=== PATIENT | male | born 1935 | race Caucasian/White ===

== ENCOUNTER → 2016-10-05 | Outpatient (CLI) | payer MEDICARE, BC | END | disposition home or self-care (01) | LOC: GMAL 10:44 | PROVIDERS: ATTEND Family Medicine | DX: Z12.5 Encounter for screening for malignant neoplasm of prostate (principal); E55.9 Vitamin D deficiency, unspecified | CPT/HCPCS: 82306; G0103 ==

== ENCOUNTER → 2017-02-22 | Outpatient (CLI) | payer MEDICARE, BC | END | disposition home or self-care (01) | LOC: LAB.O 10:09 | PROVIDERS: ATTEND Family Medicine | DX: E21.3 Hyperparathyroidism, unspecified (principal) ==

== ENCOUNTER → 2017-05-10 | Outpatient (CLI) | payer MEDICARE, BC | END | disposition home or self-care (01) | LOC: GMAL 12:26 | PROVIDERS: ATTEND Family Medicine | DX: E83.42 Hypomagnesemia (principal); E83.31 Familial hypophosphatemia; I10 Essential (primary) hypertension ==

== ENCOUNTER → 2017-07-12 | Outpatient (CLI) | payer MEDICARE, BC ==
--- NOTE | 2017-07-12 15:47 | US ---
EXAM DESCRIPTION: Breast,Left: Ultrasound CLINICAL HISTORY: 81 yearsMaleBREAST TENDERNESS . Retroareolar left breast COMPARISON: Digital 3-D tomosynthesis bilateral breasts on this visit. TECHNIQUE: Transcutaneous scanning of the bilateral retroareolar breasts. utilizing two-dimensional and Doppler modes. Scanning performed by the chief building inspector and Dr. Jha. FINDINGS: Scanned the retroareolar bilateral breasts. No discrete solid mass or cyst. No skin thickening or parenchymal edema. No large calcifications. No evidence of gynecomastia retroareolar left breast. IMPRESSION: 1. Bi-Rads Category 2: Benign. 2. Please refer to bilateral 3-D tomosynthesis mammography of the breasts on this visit. The FINDINGS and the follow-up plan were reviewed in person with the patient after the examination. Written communication explaining the IMPRESSION and follow-up will be mailed to the patient and referring care provider. Electronically signed by: Adan Jha MD 07/12/2017 3:46 PM [facility]
--- NOTE | 2017-07-12 15:49 | MAM ---
EXAM DESCRIPTION: 3D Diagnostic, Bilateral: Digital Mammography CLINICAL HISTORY: 81 yearsMaleLEFT BREAST TENDERNESS. Tender behind the left nipple for 2-2 1/2 weeks.. COMPARISON: Bilateral 2-D diagnostic digital mammographic examination bilaterally 10/29/2012.. No prior reports available. TECHNIQUE: Bilateral CC LM MLO projection full-field images, 3-D tomosynthesis digital mammographic technique. Also bilateral synthesized CC MLO LM full-field images. CAD not utilized. FINDINGS: The breast parenchymal density pattern is: Almost entirely fatty. No skin thickening or nipple retraction bilateral solitary microcalcifications. Slightly increased retroareolar density left breast compared to right breast. Not well seen on the prior study. No focal, stellate mass or density, focal asymmetry , and no suspicious microcalcifications right breast. ULTRASOUND: Scanned the retroareolar bilateral breasts. No discrete solid mass or cyst. No skin thickening or parenchymal edema. No large calcifications. No evidence of gynecomastia retroareolar left breast. IMPRESSION: BI-RADS CATEGORY: 2 - BENIGN FINDINGS. FOLLOW UP: Return to digital bilateral diagnostic mammography, based upon clinical findings or patient history. The FINDINGS and the follow-up plan were reviewed in person with the patient after the examination. Written communication explaining the IMPRESSION and follow-up will be mailed to the patient and referring care provider. According to the [employer], yearly mammograms are recommended starting at age 40 and continuing as long as a woman is in good health. Any breast change noted on a breast self-exam should be reported promptly to the patient's healthcare provider. Breast MRI is recommended for women with an approximately 20-25% or greater lifetime risk of breast cancer, including women with a strong family history of breast or ovarian cancer and women who have been treated for Hodgkin's disease. A negative mammographic report should not delay tissue diagnosis in patients with significant clinical history or physical findings. Extremely dense breast tissue limits the sensitivity of digital mammography. Electronically signed by: Adan Jha MD 07/12/2017 3:47 PM [facility]
== END | disposition home or self-care (01) ==
LOC: MAMMO 07:30
PROVIDERS: ATTEND Family Medicine
DX: N64.59 Other signs and symptoms in breast (principal)
CPT/HCPCS: 76641; G0204; G0279

== ENCOUNTER → 2017-10-24 | Outpatient (CLI) | payer MEDICARE, BC ==
--- NOTE | 2017-10-24 15:50 | MRI ---
EXAM DESCRIPTION: Lumbar Spine w/o Contrast MRI. CLINICAL HISTORY: LUMBAR RADICULOPATHY COMPARISON: MRI lumbar spine without contrast 05/03/2016. TECHNIQUE: Multiplanar, multiple standard sequences, non contrast MRI, lumbar spine. FINDINGS: L5-S1: Disc desiccation and anterior left bulge with endplate ridging. Grade 1 anterolisthesis with posterior disc uncovered. No canal stenosis. Bilateral facet arthrosis and flavum ligament hypertrophy more on the left. Bilateral foraminal stenosis and nerve root compromise. L4-5: Disc desiccation and posterior midline bulging 4 mm abutting the thecal sac. Left facet arthrosis and ligament hypertrophy. Multifactorial left foraminal stenosis. Moderate right foraminal narrowing. Mild canal narrowing. L3-4: Disc desiccation with disc space preserved and no significant bulging. Bilateral ligament hypertrophy with mild canal narrowing. Bilateral moderate foraminal narrowing. Facets are negative. L2-3: Disc desiccation with disc space preserved. Schmorl's node superior L3 endplate. Tiny posterior bulge. Bilateral flavum ligament hypertrophy. Canal is patent. Moderate left foraminal narrowing and right foramen is patent. Facets are negative. L1-2: Disc desiccation and trace retrolisthesis. Intimal anterior bulge. Flavum ligament hypertrophy with normal facets. Mild canal narrowing. Near stenosis of the right foramen with moderate narrowing of the left foramen. Conus terminates at this level. T12-L1: Disc desiccation and disc space preserved. No posterior bulge. Posterior elements are unremarkable. Mild canal narrowing. Bilateral mild foraminal narrowing. Mild levoscoliosis scoliosis. Paravertebral soft tissues demonstrate muscle atrophy.. Subchondral edema in the inferior right L4 facet. Otherwise normal marrow signal in the remaining vertebral bodies and the posterior elements. Vertebral bodies are not compressed at any level. IMPRESSION: 1. Grade 1 anterolisthesis at L5-S1 with uncovering of the posterior disc stable since the prior study. Increased bilateral foraminal compromise and impingement of the L5 nerve roots. 2. Decreased posterior protrusion of L4-5 disc since the prior study. Arthrosis again noted in the left facet. Left synovial cyst is no longer present with flavum ligament hypertrophy. Left foraminal stenosis and probable compromise left L4 nerve stable. 3. Near stenosis right foramen at L1-L2 progressed since the prior study. Electronically signed by: Adan Jha MD 10/24/2017 3:48 PM CDT
== END | disposition home or self-care (01) ==
LOC: MRI 11:00
PROVIDERS: ATTEND Family Medicine
DX: M54.16 Radiculopathy, lumbar region (principal)

== ENCOUNTER → 2017-11-08 | Outpatient (CLI) | payer MEDICARE, BC | LOC: GMAL 10:24 | PROVIDERS: ATTEND Family Medicine | DX: D51.3 Other dietary vitamin B12 deficiency anemia (principal); E55.9 Vitamin D deficiency, unspecified; E83.42 Hypomagnesemia; Z12.5 Encounter for screening for malignant neoplasm of prostate | CPT/HCPCS: 82306; 82607; 83735; G0103 ==

== ENCOUNTER → 2018-05-13 | Outpatient (CLI) | payer MEDICARE, BC | LOC: GMAL 10:50 | PROVIDERS: ATTEND Family Medicine | DX: D51.3 Other dietary vitamin B12 deficiency anemia (principal); E83.42 Hypomagnesemia; M10.9 Gout, unspecified; E55.9 Vitamin D deficiency, unspecified ==

== ENCOUNTER → 2018-08-15 | Outpatient (CLI) | payer MEDICARE, BC | LOC: GMAL 11:28 | PROVIDERS: ATTEND Family Medicine | DX: E83.42 Hypomagnesemia (principal) ==

== ENCOUNTER → 2018-09-20 | Outpatient (CLI) | payer MEDICARE, BC | LOC: GMAL 10:52 | PROVIDERS: ATTEND Family Medicine | DX: R53.83 Other fatigue (principal) ==

== ENCOUNTER 2018-12-27 18:47 | Emergency (ER) | payer MEDICARE, BC ==
[2018-12-27 19:52] VITALS: TEMP 97.8; O2SAT 94
[2018-12-27] MEDS ORDERED: CLINDAMYCIN HCL CAP 150 MG CAP PO ONE (19:55)
--- NOTE | 2018-12-27 19:59 | ED.PDOC ---
History of Present Illness - General Chief Complaint: Dental/Mouth Stated Complaint: toothpain Time Seen by Provider: 12/27/18 19:55 Source: patient Exam Limitations: no limitations - History of Present Illness Initial Comments: patient comes in today with 2 day history of swollen painful right second molar. Patient states he called his dentist but he couldn't be seen until next week. Today he noticed that his face was swollen and was worried that it was getting infected. He has no fever, chills, nausea or vomiting. Past medical history of coronary artery disease, gout, atrial fibrillation, and hypertension. Patient has no other acute complaints. Timing/Duration: yesterday Severity: moderate EENT Location: dental Prearrival Treatment: over the counter meds Improving Factors: nothing Worsening Factors: eating Associated Symptoms: facial pain/swelling Allergies/Adverse Reactions: Allergies Penicillin G Allergy (Intermediate, Unverified 11/08/12 10:44) Rash rash and swelling Home Medications: Ambulatory Orders Clindamycin HCl 300 mg PO TID #21 cap 12/27/18 Review of Systems - Review of Systems Constitutional: States: no symptoms reported. Denies: chills, fever EENTM: States: see HPI Respiratory: States: no symptoms reported. Denies: cough, short of breath Cardiology: States: no symptoms reported. Denies: chest pain, palpitations Gastrointestinal/Abdominal: States: no symptoms reported Genitourinary: States: no symptoms reported Past Medical History (General) - Patient Medical History Hx Stroke: No Hx Cardiac Disorders: Yes - A-fib Hx Congestive Heart Failure: No Hx Hypertension: Yes Hx Diabetes: No Hx Cancer: Yes Hx MRSA: No Surgical History: other - Vaccination History Hx Tetanus, Diphtheria Vaccination: Yes Hx Influenza Vaccination: Yes Hx Pneumococcal Vaccination: Yes Immunizations Up to Date: Yes - Social History Hx Tobacco Use: No Hx Alcohol Use: Yes - Activities of Daily Living Hospice Agency (if applicable):: None Family Medical History - Family History Father Hx Cardiac Disease: Yes - PA Physical Exam - Physical Exam General Appearance: Alert, Comfortable, No apparent distress Eye Exam: bilateral normal Nasal Exam: normal inspection Throat Exam: normal mouth inspection, other - mild swelling and erythema of 2nd molar inferior with no purulence Cardiovascular/Respiratory: regular rate, rhythm, no M/R/G, normal peripheral pulses, normal breath sounds, no respiratory distress Departure - Departure Clinical Impression: Dental caries Disposition: Discharge to Home or Self Care Condition: Good Departure Forms: ED Discharge - Pt. Copy, Patient Portal Self Enrollment Referrals: Chris Joaquin III, MD [Primary Care Provider] - 1-2 Weeks Prescriptions: Clindamycin HCl 300 mg PO TID #21 cap Home Medications: Ambulatory Orders Clindamycin HCl 300 mg PO TID #21 cap 12/27/18 Additional Instructions: follow up as planned with dentist next week.
[2018-12-27 20:18] VITALS: BP 161/72
== END 2018-12-27 20:18 | disposition home or self-care (01) ==
LOC: ER 18:47
DX: K02.9 Dental caries, unspecified (principal); I48.91 Unspecified atrial fibrillation; I10 Essential (primary) hypertension; Z88.0 Allergy status to penicillin; Z85.9 Personal history of malignant neoplasm, unspecified; I25.10 Atherosclerotic heart disease of native coronary artery without angina pectoris

== ENCOUNTER → 2019-05-08 | Outpatient (CLI) | payer MEDICARE, BC ==
--- NOTE | 2019-05-09 11:32 | MRI ---
EXAM DESCRIPTION: Lumbar Spine w/o Contrast : Magnetic Resonance Imaging. CLINICAL HISTORY: LUMBAR RADICULOPATHY COMPARISON: LUMBAR TECHNIQUE: Multiplanar, multiple standard sequences, non contrast MRI, lumbar spine. FINDINGS: L5-S1: The disc is well visualized on axial T2 series 501, image 3. Moderate loss of disc space with grade 1 anterolisthesis 6.5 mm. Posterior disc uncovered with minimal bulging into the canal. Bilateral disc bulge into the canal with bony severe foraminal narrowing. Anterior left disc bulge with endplate ridging. Bilateral bilateral hypertrophic facet arthrosis with effusion and posterior ligament thickening with mild canal narrowing. Stable since the prior study. L4-L5: Disc desiccation with minimal disc loss. Posterior broad-based bulge with minimal hypertrophy of the bilateral facets and ligaments and canal patent. Moderate to severe right foraminal narrowing and left foraminal stenosis. No change since the prior study. L3-L4: Disc desiccation with disc space preserved. Superior L4 endplate SCHMORL'S node. Bilateral hypertrophic facet arthrosis and ligament thickening. Canal patent. Moderate bilateral foraminal narrowing. Stable since the prior study. L2-L3: Disc desiccation and tiny posterior bulge. Disc space preserved. Bilateral hypertrophic facet arthrosis and minimal ligament thickening. Minimal canal narrowing. Mild right foraminal narrowing and moderate left foraminal narrowing. No change since the prior study. L1-L2: Disc desiccation with disc space preserved and no bulging. Severe right foraminal narrowing and moderate left foraminal narrowing. Conus terminates just above the disc space. Foraminal narrowing has progressed since the prior study. T12-L1: Disc desiccation with disc space preserved and no significant bulging. Posterior elements unremarkable. Borderline mild central canal narrowing. Mild bilateral foraminal narrowing. Stable since the prior study. Right convex lumbosacral curvature and mid lumbar levoscoliosis. Paravertebral soft tissues 1.8 cm cortical cyst medial posterior left kidney.. Distal cord normal signal and caliber. Heterogeneous marrow signal in the remaining vertebral bodies and the posterior elements. Vertebral bodies are not compressed at any level. IMPRESSION: 1. Multiple levels of hypertrophic facet arthrosis and flavum ligament thickening, disc desiccation and bulging. 2. L1-L2 disc desiccation with disc-bone bilateral foraminal narrowing, severe on the right. This has progressed since the prior study. 3. Moderate to severe right foraminal narrowing and left foraminal stenosis stable since the prior study. 4. Grade 1 anterolisthesis, spondylosis, posterior disc uncovering and posterior elements hypertrophy with mild canal narrowing at L5-S1 is stable since the prior study. Electronically signed by: Adan Jha MD 05/09/2019 11:31 AM CDT
== END ==
LOC: MRI 10:31
PROVIDERS: ATTEND Family Medicine
DX: M51.36 Other intervertebral disc degeneration, lumbar region (principal); M48.061 Spinal stenosis, lumbar region without neurogenic claudication; M43.17 Spondylolisthesis, lumbosacral region

== ENCOUNTER → 2019-06-11 | Outpatient (CLI) | payer MEDICARE, BC | END | disposition home or self-care (01) | LOC: GMAL 10:34 | PROVIDERS: ATTEND Family Medicine | DX: D51.3 Other dietary vitamin B12 deficiency anemia (principal); E55.9 Vitamin D deficiency, unspecified; E83.42 Hypomagnesemia; M10.9 Gout, unspecified ==

== ENCOUNTER → 2019-12-05 | Outpatient (CLI) | payer MEDICARE, BC | LOC: GMAL 11:14 | PROVIDERS: ATTEND Family Medicine | DX: R53.83 Other fatigue (principal); R97.20 Elevated prostate specific antigen [PSA]; I10 Essential (primary) hypertension; E78.2 Mixed hyperlipidemia ==

== ENCOUNTER 2020-06-21 07:16 | Day surgery (SDC) | payer MEDICARE, BC ==
[~2020-06-21 07:16] MED LIST: BETAMETHASONE ACETATE/BETAMETH 6 MG/ML VIAL IM ONE; BUPIVACAINE 0.5% 30 ML VIAL INJ ONE; LIDOCAINE 1% 10 ML VIAL INJ ONE
[2020-06-21] MEDS ORDERED: BETAMETHASONE ACETATE/BETAMETH 6 MG/ML VIAL IM ONE ×2 (09:14→09:30)
[2020-06-21] MEDS ORDERED: LIDOCAINE 1% 10 ML VIAL INJ ONE ×2 (09:14→09:30)
[2020-06-21] MEDS ORDERED: BUPIVACAINE 0.5% 30 ML VIAL INJ ONE ×2 (09:15→09:30)
== END 2020-06-21 10:02 | disposition home or self-care (01) ==
LOC: AMB 07:16
PROVIDERS: ATTEND Family Medicine Sports Medicine
DX: M54.5 Low back pain (principal); M47.896 Other spondylosis, lumbar region; I48.91 Unspecified atrial fibrillation; E78.5 Hyperlipidemia, unspecified; K21.9 Gastro-esophageal reflux disease without esophagitis; M10.9 Gout, unspecified; I10 Essential (primary) hypertension; F17.210 Nicotine dependence, cigarettes, uncomplicated; Z88.2 Allergy status to sulfonamides; Z88.8 Allergy status to other drugs, medicaments and biological substances; Z79.01 Long term (current) use of anticoagulants; Z79.899 Other long term (current) drug therapy

== ENCOUNTER → 2020-06-28 | Outpatient (CLI) | payer MEDICARE, BC | LOC: GMAL 11:11 | PROVIDERS: ATTEND Family Medicine | DX: D51.3 Other dietary vitamin B12 deficiency anemia (principal); E55.9 Vitamin D deficiency, unspecified; Z79.899 Other long term (current) drug therapy; I10 Essential (primary) hypertension; E78.2 Mixed hyperlipidemia ==

== ENCOUNTER 2020-07-05 05:30 | Day surgery (SDC) | payer MEDICARE, BC ==
[2020-07-05] MEDS ORDERED: BUPIVACAINE 0.5% 30 ML VIAL INJ ONE ×2 (07:28→09:45)
[2020-07-05] MEDS ORDERED: LIDOCAINE 1% 10 ML VIAL INJ ONE ×2 (07:28→09:45)
[2020-07-05] MEDS ORDERED: BETAMETHASONE ACETATE/BETAMETH 6 MG/ML VIAL IM ONE ×2 (07:54→09:45)
[2020-07-05] MEDS ORDERED: DEXAMETHASONE INJ 10 MG/ML VIAL ONE (07:59)
== END 2020-07-05 10:08 | disposition home or self-care (01) ==
LOC: AMB 05:30
PROVIDERS: ATTEND Family Medicine Sports Medicine
DX: M54.5 Low back pain (principal); M47.896 Other spondylosis, lumbar region; I48.20 Chronic atrial fibrillation, unspecified; E78.5 Hyperlipidemia, unspecified; I10 Essential (primary) hypertension; K21.9 Gastro-esophageal reflux disease without esophagitis; M81.0 Age-related osteoporosis without current pathological fracture; G43.909 Migraine, unspecified, not intractable, without status migrainosus; F17.210 Nicotine dependence, cigarettes, uncomplicated; Z88.2 Allergy status to sulfonamides; Z88.8 Allergy status to other drugs, medicaments and biological substances; Z79.01 Long term (current) use of anticoagulants; Z79.899 Other long term (current) drug therapy

== ENCOUNTER 2020-08-09 05:51 | Day surgery (SDC) | payer MEDICARE, BC ==
[2020-08-09] MEDS ORDERED: LIDOCAINE 1% 10 ML VIAL INJ ONE ×2 (07:41→10:58)
[2020-08-09] MEDS ORDERED: BUPIVACAINE 0.5% 30 ML VIAL INJ ONE ×2 (07:41→10:58)
[2020-08-09] MEDS ORDERED: DEXAMETHASONE INJ 10 MG/ML VIAL ONE (07:41)
[2020-08-09] MEDS ORDERED: DEXAMETHASONE INJ 10 MG/ML VIAL IV ONE (10:58)
== END 2020-08-09 11:40 | disposition home or self-care (01) ==
LOC: AMB 05:51
PROVIDERS: ATTEND Family Medicine Sports Medicine
DX: M54.5 Low back pain (principal); M54.16 Radiculopathy, lumbar region; I48.20 Chronic atrial fibrillation, unspecified; E78.5 Hyperlipidemia, unspecified; I10 Essential (primary) hypertension; K21.9 Gastro-esophageal reflux disease without esophagitis; M10.9 Gout, unspecified; Z86.010 Personal history of colon polyps; Z88.2 Allergy status to sulfonamides; Z88.8 Allergy status to other drugs, medicaments and biological substances; Z79.01 Long term (current) use of anticoagulants; Z79.899 Other long term (current) drug therapy
CPT/HCPCS: 64483; 64484; 76000; J1100